=== PATIENT | male | born 1970 | race Caucasian/White ===

== ENCOUNTER 2018-02-10 19:50 | Emergency (ER) | payer SELFPAY ==
[~2018-02-10] VITALS: Ht 167.6 cm; Wt 59.1 kg
[2018-02-10 20:01] VITALS: BP 143/76; PULSE 102; RESP 18; TEMP 98.2; O2SAT 99
[2018-02-10 23:55] VITALS: BP 165/72; PULSE 83; RESP 16; O2SAT 99
--- NOTE | 2018-02-11 00:03 | PD ---
HPI Chief Complaint: Psychiatric Symptoms Time Seen by Provider: 23:43 Travel History International Travel<30 days: No Contact w/Intl Traveler<30days: No Traveled to known affect area: No History of Present Illness HPI 47-year-old white male presents emergency department with multiple complaints. He had just gotten to [facility] approximately 2 weeks ago. He is homeless on the streets. He had initially come from [facility] and had gone down to [facility]. He had been staying there for some time and now is coming up to [facility]. He complains of sores and pain in his feet. He also states that he has back pain finally he also adds in that he has been hearing voices of persecution. He does admit to feeling depressed and having suicidal thoughts but has no current plan. No homicidal ideation. Patient states that he was seen in a psychiatric facility in [place] in the past but has not been given any diagnosis. He admits to chronic alcohol abuse. He drinks on a daily basis. He does smoke marijuana. Denies any other drugs. [facility] Past Medical History Narrative Medical Alcoholism, chronic back pain Diabetes: No Patient Takes Glucophage: No Diminished Hearing: No Medical other: Yes (CHRONIC PAIN) Immunizations Current: Yes Tetanus Vaccination: > 5 Years Influenza Vaccination: No Past Surgical History Surgical History: No Previous Surgery Social History Alcohol Use: Yes Tobacco Use: Yes Substance Use: Yes (Marijuana) Allergies-Medications (Allergen,Severity, Reaction): Coded Allergies: Penicillins (Verified Allergy, Unknown, 02/10/18) Reported Meds & Prescriptions Reported Meds & Active Scripts Active No Active Prescriptions or Reported Medications Review of Systems General / Constitutional: No: Fever Eyes: No: Visual changes HENT: No: Headaches Cardiovascular: No: Chest Pain or Discomfort Respiratory: No: Shortness of Breath Gastrointestinal: No: Abdominal Pain Genitourinary: No: Dysuria Musculoskeletal: Positive: Pain (Bilateral foot pain) Skin: Positive Rash (Bilateral feet) Neurologic: No: Weakness Psychiatric: Positive: Depression, Suicidal Ideations, Disorder of Thought, Mood Disorder, Substance Abuse, No: Anxiety, Homicidal Ideation Endocrine: No: Polydipsia Hematologic/Lymphatic: No: Easy Bruising Physical Exam Narrative GENERAL: Well-nourished, well-developed patient. SKIN: Warm and dry. Patient has a few abrasions to bilateral lower extremities. HEAD: Normocephalic and atraumatic. EYES: No scleral icterus. No injection or drainage. ENT: No nasal drainage noted. Mucous membranes pink. Airway patent. NECK: Supple, trachea midline. Moves head freely without obvious discomfort. CARDIOVASCULAR: Regular rate and rhythm without murmurs, gallops, or rubs. RESPIRATORY: Breath sounds equal bilaterally. No accessory muscle use. GASTROINTESTINAL: Abdomen soft, non-tender, nondistended. EXTREMITIES: No cyanosis or edema. Patient has scaly dermatitis of both feet plantar surface with maceration between his toes consistent with tinea pedis. BACK: Nontender without obvious deformity. No CVA tenderness. NEURO: Patient is alert and oriented. no sensorimotor deficits. Nonfocal. Normal speech. PSYCH: No delusions. No auditory or visual hallucinations. Data Data Last Documented VS Vital Signs Date Time Temp Pulse Resp B/P (MAP) Pulse Ox O2 Delivery O2 Flow Rate FiO2 02/10/18 20:01 98.2 102 18 143/76 (98) 99 Orders Orders Complete Blood Count With Diff (02/10/18 23:54) Comprehensive Metabolic Panel (02/10/18 23:54) Thyroid Stimulating Hormone (02/10/18 23:54) Psych Screen (02/10/18 23:54) Drug Screen, Random Urine (02/10/18 23:54) Alcohol (Ethanol) (02/10/18 23:54) MDM Medical Decision Making Medical Screen Exam Complete: Yes Emergency Medical Condition: Yes Medical Record Reviewed: Yes Differential Diagnosis MDM: High Differential diagnoses: Schizophrenia, schizoaffective disorder, bipolar, anxiety, depression, adjustment reaction, mood disorder NOS, ODD, depressive disorder NOS, dementia, dementia with agitation, psychosis NOS, substance induced mood disorder, DMDD, tinea pedis, infection,electrolyte abnormality, malingering. Narrative Course Mental health screening discussed with the patient. Psychiatric screen ordered. The patient has tinea pedis. He also complains of back pain. I see no signs of infection. The patient now is escalating his complaints of feeling depressed and having suicidal thoughts. We will perform a medical clearance exam and allow him to see the psychiatrist in the morning. Diagnosis Primary Impression: Medical clearance for psychiatric admission Additional Impressions: Tinea pedis Qualified Codes: B35.3 - Tinea pedis Chronic back pain Qualified Codes: M54.5 - Low back pain; G89.29 - Other chronic pain Homelessness Scripts No Active Prescriptions or Reported Meds Condition: Edilson Sparks Feb 11, 2018 00:03
[2018-02-11 00:19] LABS: AUTOMATED NEUTROPHIL # 6.8 TH/MM3 (1.8-7.7); BASOPHIL # 0.1 TH/MM3 (0-0.2); BASOPHIL % 0.8 % (0.0-2.0); EOSINOPHIL # 0.5 TH/MM3 (0-0.4); EOSINOPHIL % 4.5 % (0.0-4.0); HEMATOCRIT 44.4 % (39.0-51.0); HEMOGLOBIN 15.6 GM/DL (13.0-17.0); LYMPH % 23.2 % (9.0-44.0); LYMPHOCYTE # 2.5 TH/MM3 (1.0-4.8); MEAN CELL VOLUME 90.7 FL (80.0-100.0); MEAN CORPUSCULAR HEMOGLOBIN 31.9 PG (27.0-34.0); MEAN CORPUSCULAR HGB CONC 35.2 % (32.0-36.0); MEAN PLATELET VOLUME 7.9 FL (7.0-11.0); MONO % 9.5 % (0.0-8.0); PLATELET COUNT 271 TH/MM3 (150-450); RED BLOOD COUNT 4.89 MIL/MM3 (4.50-5.90); RED CELL DISTRIBUTION WIDTH 12.8 % (11.6-17.2); WHITE BLOOD COUNT 10.9 TH/MM3 (4.0-11.0)
[2018-02-11 00:52] LABS: ALBUMIN 4.2 GM/DL (3.4-5.0); ALT (GPT) 30 U/L (12-78); AST (GOT) 31 U/L (15-37); BICARBONATE 27.3 MEQ/L (21.0-32.0); BLOOD UREA NITROGEN 7 MG/DL (7-18); CHLORIDE 102 MEQ/L (98-107); CREATININE 0.87 MG/DL (0.60-1.30); GLOMERULAR FILTRATION RATE 93 ML/MIN (>89); GLUCOSE,RANDOM 76 MG/DL (74-106); SODIUM (NA) 138 MEQ/L (136-145)
[2018-02-11 01:02] LABS: ALKALINE PHOSPHATASE 160 U/L (45-117); TOTAL BILIRUBIN ADULT 0.7 MG/DL (0.2-1.0); TOTAL PROTEIN 8.5 GM/DL (6.4-8.2)
[2018-02-11 08:46] VITALS: BP 139/69; PULSE 90; RESP 20; O2SAT 97
--- NOTE | 2018-02-11 09:59 | PD ---
History of Present Illness Chief Complaint: Psychiatric Symptoms Time Seen by Provider: 09:00 Travel History International Travel<30 Days: No Contact w/Intl Traveler<30days: No Known affected area: No Legal Status Legal Status: Voluntary History of Present Illness: 47-year-old single, white male presents voluntarily to the emergency department with complaints of feeling depressed and having suicidal thoughts but with no current plan. Patient is unknown to this facility as he reports he only came to this area approximately 2 weeks ago. Reviewed electronic medical records, labs, and discussed case with staff. Evaluation was performed in patient's room in the ED. Patient is awake, alert, and oriented 4. His speech is clear, logical, and organized His mood is good and his affect is euthymic. When asked why he had come to the ED he replies "I need help with housing". He is on to inform this provider that he came from [place] to work in the area and that his "boss got in trouble with the law and was arrested with my money". 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 Patient does admit to having family in [place]. At this time he denies being suicidal, homicidal, and having visual hallucinations. When asked about auditory hallucinations he states "I am not schizophrenic". However, he also advises that he "can hear people". He denies any previous attempts of suicide, reports that he drinks occasionally, and denies drug use, tox screen positive for cannabinoids. He denies any history of and or outpatient treatment. He denies possessing firearms. Patient advised she had been living in a homeless usp in [place]. Explained to patient that currently there are no homeless shelters available in this area. He will attempt to contact family in [place] in the hopes of having them by a bus ticket for him to return to that area. His nurse will system without task and he will be discharged with bus tickets to get him to the [facility]. PFS Past Medical History Narrative Medical Patient cleared medically by ED staff. Diabetes: No Patient Takes Glucophage: No Diminished Hearing: No Medical other: Yes (CHRONIC PAIN) Immunizations Current: Yes Tetanus Vaccination: > 5 Years Influenza Vaccination: No Past Surgical History Surgical History: No Previous Surgery Psychiatric History Psychiatric History Denies History of Inpatient Treatment: No Guns or firearms in home: No Social History States that he lives in a homeless usp in [facility]. He does have family in that area. Tox screen positive for cannabinoids. Reports social drinking. Hx Alcohol Use: Yes Hx Tobacco Use: Yes Hx Substance Use: Yes (Marijuana) Substance Use Type: Alcohol (Socially), Marijuana Hx of Substance Use Treatment: No (Denies) Family Psychiatric History Denies familial history of suicide attempts or mental illness diagnoses. Allergies-Medications (Allergen,Severity, Reaction): Coded Allergies: Penicillins (Verified Allergy, Unknown, 02/10/18) Reported Meds & Prescriptions Reported Meds & Active Scripts Active No Active Prescriptions or Reported Medications Mental Status Examination Appearance: Appropriate Consciousness: Alert Orientation: x4 Motor Activity: Normal gait Speech: Unremarkable Language: Adequate Fund of Knowledge: Adequate Attention and Concentration: Adequate Memory: Unremarkable Mood: Appropriate, Good Affect: Appropriate, Euthymic Thought Process & Associations: Intact Thought Content: Appropriate Hallucination Type: None Delusion Type: None Suicidal Ideation: No Suicidal Plan: No Suicidal Intention: No Homicidal Ideation: No Homicidal Plan: No Homicidal Intention: No Insight: Adequate Judgment: Adequate MDM Medical Decision Making Assessment/Plan 47-year-old single, homeless, white male who presents voluntarily to the emergency department with complaints of depression and suicidal ideation, which she admits is directly related to his homeless situation. Patient is unknown to this facility. He reports coming to this area approximately 2 weeks ago for a job opportunity, and states that his boss was arrested with his money. He denies any thoughts of self-harm, homicidal ideation, auditory or visual hallucinations. His speech is clear, logical, and organized. His mood is good and his affect is euthymic. The only issue will he brings up throughout the interview is being homeless and stranded, and reports that he "needs help with housing". Patient does not meet Joaquin act nor inpatient admission criteria at this time. It appears that his issues are more social in nature. His nurse will assist with trying to contact family back in [place] who can purchase a bus ticket for him to return to that area. Advised patient we will provide bus tickets to get him to the [facility]. He states that he understands this plan and intends to comply. Advised patient to return to this facility if his condition should worsen. Orders Orders Complete Blood Count With Diff (02/10/18 23:54) Comprehensive Metabolic Panel (02/10/18 23:54) Thyroid Stimulating Hormone (02/10/18 23:54) Psych Screen (02/10/18 23:54) Drug Screen, Random Urine (02/10/18 23:54) Alcohol (Ethanol) (02/10/18 23:54) Diet Regular Basic (02/11/18 Breakfast) Results Vital Signs Date Time Temp Pulse Resp B/P (MAP) Pulse Ox O2 Delivery O2 Flow Rate FiO2 02/11/18 08:46 90 20 139/69 (92) 97 Room Air 02/10/18 23:55 83 16 165/72 (103) 99 Room Air 02/10/18 20:01 98.2 102 18 143/76 (98) 99 Laboratory Tests Test 02/11/18 00:07 02/11/18 04:00 White Blood Count 10.9 Red Blood Count 4.89 Hemoglobin 15.6 Hematocrit 44.4 Mean Corpuscular Volume 90.7 Mean Corpuscular Hemoglobin 31.9 Mean Corpuscular Hemoglobin Concent 35.2 Red Cell Distribution Width 12.8 Platelet Count 271 Mean Platelet Volume 7.9 Neutrophils (%) (Auto) 62.0 Lymphocytes (%) (Auto) 23.2 Monocytes (%) (Auto) 9.5 Eosinophils (%) (Auto) 4.5 Basophils (%) (Auto) 0.8 Neutrophils # (Auto) 6.8 Lymphocytes # (Auto) 2.5 Monocytes # (Auto) 1.0 Eosinophils # (Auto) 0.5 Basophils # (Auto) 0.1 CBC Comment DIFF FINAL Differential Comment Blood Urea Nitrogen 7 Creatinine 0.87 Random Glucose 76 Total Protein 8.5 Albumin 4.2 Calcium Level 9.0 Alkaline Phosphatase 160 Aspartate Amino Transf (AST/SGOT) 31 Alanine Aminotransferase (ALT/SGPT) 30 Total Bilirubin 0.7 Sodium Level 138 Potassium Level 3.9 Chloride Level 102 Carbon Dioxide Level 27.3 Anion Gap 9 Estimat Glomerular Filtration Rate 93 Thyroid Stimulating Hormone 3rd Gen 1.020 Ethyl Alcohol Level LESS THAN 3 Urine Opiates Screen NEG Urine Barbiturates Screen NEG Urine Amphetamines Screen NEG Urine Benzodiazepines Screen NEG Urine Cocaine Screen NEG Urine Cannabinoids Screen POS Diagnosis Primary Impression: Adjustment disorder Additional Impression: Homelessness Psychiatrically Cleared: Yes Prescriptions No Active Prescriptions or Reported Meds Condition: Stable Problem Qualifiers Yaz Vidal Feb 11, 2018 09:59
--- NOTE | 2018-02-11 11:21 | PD ---
Physical Exam Date Seen by Provider: Feb 11, 2018 Time Seen by Provider: 11:17 Data Data Last Documented VS Vital Signs Date Time Temp Pulse Resp B/P (MAP) Pulse Ox O2 Delivery O2 Flow Rate FiO2 02/11/18 08:46 90 20 139/69 (92) 97 Room Air 02/10/18 20:01 98.2 Orders Orders Complete Blood Count With Diff (02/10/18 23:54) Comprehensive Metabolic Panel (02/10/18 23:54) Thyroid Stimulating Hormone (02/10/18 23:54) Psych Screen (02/10/18 23:54) Drug Screen, Random Urine (02/10/18 23:54) Alcohol (Ethanol) (02/10/18 23:54) Diet Regular Basic (02/11/18 Breakfast) Ed Discharge Order (02/11/18 11:16) Labs Laboratory Tests Test 02/11/18 00:07 02/11/18 04:00 White Blood Count 10.9 TH/MM3 Red Blood Count 4.89 MIL/MM3 Hemoglobin 15.6 GM/DL Hematocrit 44.4 % Mean Corpuscular Volume 90.7 FL Mean Corpuscular Hemoglobin 31.9 PG Mean Corpuscular Hemoglobin Concent 35.2 % Red Cell Distribution Width 12.8 % Platelet Count 271 TH/MM3 Mean Platelet Volume 7.9 FL Neutrophils (%) (Auto) 62.0 % Lymphocytes (%) (Auto) 23.2 % Monocytes (%) (Auto) 9.5 % Eosinophils (%) (Auto) 4.5 % Basophils (%) (Auto) 0.8 % Neutrophils # (Auto) 6.8 TH/MM3 Lymphocytes # (Auto) 2.5 TH/MM3 Monocytes # (Auto) 1.0 TH/MM3 Eosinophils # (Auto) 0.5 TH/MM3 Basophils # (Auto) 0.1 TH/MM3 CBC Comment DIFF FINAL Differential Comment Blood Urea Nitrogen 7 MG/DL Creatinine 0.87 MG/DL Random Glucose 76 MG/DL Total Protein 8.5 GM/DL Albumin 4.2 GM/DL Calcium Level 9.0 MG/DL Alkaline Phosphatase 160 U/L Aspartate Amino Transf (AST/SGOT) 31 U/L Alanine Aminotransferase (ALT/SGPT) 30 U/L Total Bilirubin 0.7 MG/DL Sodium Level 138 MEQ/L Potassium Level 3.9 MEQ/L Chloride Level 102 MEQ/L Carbon Dioxide Level 27.3 MEQ/L Anion Gap 9 MEQ/L Estimat Glomerular Filtration Rate 93 ML/MIN Thyroid Stimulating Hormone 3rd Gen 1.020 uIU/ML Ethyl Alcohol Level LESS THAN 3 MG/DL Urine Opiates Screen NEG Urine Barbiturates Screen NEG Urine Amphetamines Screen NEG Urine Benzodiazepines Screen NEG Urine Cocaine Screen NEG Urine Cannabinoids Screen POS MDM Medical Record Reviewed: Yes Supervised Visit with CADEN: No Narrative Course 47-year-old male initially presented to the emergency room for evaluation of bilateral foot pain. He was diagnosed with tinea pedis and upon discharge stated that he wanted to kill himself. He was then seen by psychiatric nurse practitioner and cleared from a psychiatric standpoint. Patient denies suicidal or homicidal ideation at this time. States he is ready to to leave. He has plans to go back to [place] with his family. Physical exam is reassuring. Patient is ambulatory in the hallway without difficulty. He is using the phone to call family and friends. CBC and CMP are essentially unremarkable. Toxicology screen is only positive for cannabinoids. Vital signs stable. He is stable for outpatient follow-up. Patient told to return for worsening symptoms. Diagnosis Primary Impression: Adjustment disorder Qualified Codes: F43.20 - Adjustment disorder, unspecified Additional Impressions: Homelessness Tinea pedis Qualified Codes: B35.3 - Tinea pedis Patient Instructions: General Instructions, Mood Disorders (ED) Departure Forms: Tests/Procedures Additional Instruction: Purchase [id number] clotrimazole 1% (athlete's foot cream). Return to an emergency room for urgent or emergent medical conditions. Scripts No Active Prescriptions or Reported Meds Condition: Stable Clarissa Graves Feb 11, 2018 11:21
[2018-02-12] MEDS ORDERED: CYCL10TA PO (05:27)
[2018-02-12] MEDS ORDERED: NAPR375T4 PO (05:27)
== END 2018-02-11 12:34 | disposition home or self-care (01) ==
LOC: NEPD 19:50
DX: F43.20 Adjustment disorder, unspecified (principal); B35.3 Tinea pedis; G89.29 Other chronic pain; M54.5 Low back pain; F32.9 Major depressive disorder, single episode, unspecified; R45.851 Suicidal ideations; F12.90 Cannabis use, unspecified, uncomplicated; F10.20 Alcohol dependence, uncomplicated; Z72.0 Tobacco use; Z59.0 Homelessness
CPT/HCPCS: 80053; 80307; 84443; 85025; 99283

== ENCOUNTER 2018-02-12 02:54 | Emergency (ER) | payer SELFPAY ==
--- NOTE | 2018-02-12 04:23 | PD ---
HPI Chief Complaint: Back/ Neck Pain or Injury Time Seen by Provider: 04:15 Travel History International Travel<30 days: No Contact w/Intl Traveler<30days: No Traveled to known affect area: No History of Present Illness HPI Patient is here secondary to low back pain which she has had for several months , today he comes in with an exacerbation. Describes it as sharp, 4-5 out of 10 , nonradiating, worse with movement and bending. Patient denies any alleviating or aggravating factors. Patient denies any associated factors such as urinary or fecal incontinence, denies numbness to his lower extremities. Patient denies any allergies to medications Patient denies any surgery States he only has a history of chronic back pain, secondary to disc space abnormality PFSH Past Medical History Diabetes: No Diminished Hearing: No Immunizations Current: Yes Social History Alcohol Use: Yes Tobacco Use: Yes Substance Use: Yes (Marijuana) Allergies-Medications (Allergen,Severity, Reaction): Coded Allergies: Penicillins (Verified Allergy, Unknown, 02/12/18) Reported Meds & Prescriptions Reported Meds & Active Scripts Active No Active Prescriptions or Reported Medications Review of Systems General / Constitutional: No: Fever Eyes: No: Visual changes HENT: No: Headaches Cardiovascular: No: Chest Pain or Discomfort Respiratory: No: Shortness of Breath Gastrointestinal: No: Abdominal Pain Genitourinary: No: Dysuria Musculoskeletal: Positive: Pain (Low back pain) Skin: No Rash Neurologic: No: Weakness Psychiatric: No: Depression Endocrine: No: Polydipsia Hematologic/Lymphatic: No: Easy Bruising Physical Exam Narrative GENERAL: SKIN: Warm and dry. HEAD: Atraumatic. Normocephalic. EYES: Pupils equal and round. No scleral icterus. No injection or drainage. ENT: No nasal bleeding or discharge. Mucous membranes pink and moist. NECK: Trachea midline. No JVD. CARDIOVASCULAR: Regular rate and rhythm. RESPIRATORY: No accessory muscle use. Clear to auscultation. Breath sounds equal bilaterally. GASTROINTESTINAL: Abdomen soft, non-tender, nondistended. MUSCULOSKELETAL: Extremities without clubbing, cyanosis, or edema. No obvious deformities. NEUROLOGICAL: Awake and alert. No obvious cranial nerve deficits. Motor grossly within normal limits. Five out of 5 muscle strength in the arms and legs. Normal speech. Patient was able to ambulate without any assistance. Patient denies any saddle anesthesia. PSYCHIATRIC: Appropriate mood and affect; insight and judgment normal. Data Data Orders Orders Spine, Lumbar - Ltd (Ap & Lat) (02/12/18 04:24) MDM Medical Decision Making Medical Screen Exam Complete: Yes Emergency Medical Condition: Yes Medical Record Reviewed: Yes Differential Diagnosis Continue fractures versus dislocations versus osteoarthritis versus disc disease Narrative Course X-ray shows 3 different chronic compression fractures noted. Diagnosis Primary Impression: Old lumbar compression fracture Patient Instructions: General Instructions, Vertebral Compression Fracture (ED) Scripts Cyclobenzaprine (Flexeril) 10 Mg Tab 10 MG PO TID for Muscle Spasm, #15 TAB 0 Refills Prov: Stanton Rae MD 02/12/[address] (Naproxen EC) 375 Mg Tabdr 375 MG PO BID, #20 TAB 0 Refills Prov: Stanton Rae MD 02/12/18 Disposition: 01 DISCHARGE HOME Condition: Stable Stanton Rae MD Feb 12, 2018 04:22
--- NOTE | 2018-02-12 05:21 | RADRPT ---
EXAM DATE/TIME: 02/12/2018 04:35 [facility] COMPARISON: No previous studies available for comparison. INDICATIONS : Low back pain, no known trauma. MEDICAL HISTORY : None. SURGICAL HISTORY : None. ENCOUNTER: Initial ACUITY: 4 - 6 months PAIN SCORE: 4/10 LOCATION: lumbar FINDINGS: AP and lateral views of the thoracic spine show multiple compression fractures. There is a 50% loss o f height of T12 and L1 secondary to superior endplate depressions. There is a 40% loss of height of t he superior endplate of L3. No discrete cortical or trabecular irregularity involving any fracture. T here is a scoliotic curvature with concavity towards the patient's left centered at L2-L3. Disc space heights are preserved. CONCLUSION: 1. Compression fractures of T12, L1, and L3 without radiographic features to suggest acute fractures. These can be further assessed with CT or MRI if clinically warranted. Jason Patel Jr., MD on February 12, 2018 at 5:18 Board Certified Radiologist. This report was verified electronically.
[2018-02-12] MEDS ORDERED: NAPR375T4 PO (05:27)
[2018-02-12] MEDS ORDERED: CYCL10TA PO (05:27)
== END 2018-02-12 05:53 | disposition home or self-care (01) ==
LOC: NEPE 02:54
DX: M48.55XS Collapsed vertebra, not elsewhere classified, thoracolumbar region, sequela of fracture (principal); Z72.0 Tobacco use; Z87.39 Personal history of other diseases of the musculoskeletal system and connective tissue
CPT/HCPCS: 72100; 99283